=== PATIENT | male | born 1950 | race African-American/Black ===

== ENCOUNTER 2020-09-20 03:43 | Emergency (ER) | payer OTHER ==
[~2020-09-20] VITALS: Ht 172.7 cm; Wt 86.2 kg
[2020-09-20] MEDS ORDERED: NORVASC 2.5 MG2.5 M1 PO (03:55)
[2020-09-20] MEDS ORDERED: LISINOPRIL2.5 MG PO (03:55)
[2020-09-20] MEDS ORDERED: PENICILLIN VK500 MG PO (04:32)
[2020-09-20] MEDS ORDERED: HYDROCODON-ACE1 EAC7 PO (04:32)
[2020-09-20 04:55] VITALS: BP 161/81
== END 2020-09-20 04:55 | disposition home or self-care (01) ==
LOC: M.ERS 03:43
DX: A69.1 Other Vincent's infections (principal); K02.9 Dental caries, unspecified; I10 Essential (primary) hypertension; Z88.6 Allergy status to analgesic agent